=== PATIENT | female | born 1970 | race African-American/Black ===

== ENCOUNTER 2023-07-03 10:30 | Outpatient (REF) | payer OTHER, SELFPAY ==
[2023-07-03 11:58] LABS: MANUAL DIFF FLAG NO
[2023-07-03 12:21] LABS: Basophils Absolute Auto 0.1 X10*3/uL (0.0-0.2); Basophils Percent Auto 1.5 % (0-2); Eosinophils Absolute Auto 0.2 X10*3/uL (0.0-0.4); Eosinophils Percent Auto 2.3 % (0-4); Hematocrit 38.4 % (37.0-47.0); Hemoglobin 12.4 g/dl (12.0-16.0); Imm Gran Abs Auto 0.03 X10*3/uL (0.00-0.03); Imm Gran Pct Auto 0.4 % (0.0-0.4); Lymphocytes Absolute Auto 1.5 X10*3/uL (1.2-4.9); Lymphocytes Percent Auto 22.3 % (20-40); Mean Corpuscular HGB Conc 32.3 g/dl (31.0-35.0); Mean Corpuscular Hemoglobin 27.4 pg (27.0-33.0); Mean Corpuscular Volume 84.8 fL (80.0-98.0); Mean Platelet Volume 9.7 fL (9.4-12.3); Monocytes Absolute Auto 0.4 X10*3/uL (0.1-1.2); Neutrophils Absolute Auto 4.6 x10*3/uL (2.0-8.3); Neutrophils Percent Auto 67.5 % (45-73); Platelet Count 500 X10*3/uL (160-400); Red Blood Count 4.53 X10*6/uL (4.20-5.50); Red Cell Distribution Width 14.4 % (11.0-16.0); White Blood Count 6.9 X10*3/uL (4.8-10.8)
[2023-07-03 12:31] LABS: Monotest Negative (Negative)
[2023-07-03 12:53] LABS: Rheumatoid Factor < 13.0 IU/mL (<15.0)
[2023-07-03 13:22] LABS: Vitamin B12 584 pg/mL (200-900)
[2023-07-03 13:25] LABS: Alanine Aminotransferase 11 U/L (0-31); Alkaline Phosphatase 96 U/L (39-117); Anion Gap 10 (12-20); Aspartate Amino Transferase 13 U/L (5-31); Bilirubin Direct 0.1 mg/dL (0.0-0.5); Bilirubin Total 0.3 mg/dL (0.0-1.0); Blood Urea Nitrogen 14 mg/dL (9-16); C Reactive Protein 0.38 mg/dL (< or = 0.50); Calcium 8.7 mg/dL (8.4-10.2); Carbon Dioxide 25 mmol/L (22-29); Chloride 107 mmol/L (96-108); Cholesterol 243 mg/dL (<200); Estimated Glomerular Filt Rate > 60; Glucose Random 83 mg/dL (60-115); HDL Cholesterol 48 mg/dL (>40); LDL Cholesterol Calculated 171 mg/dL (<100); Magnesium 2.1 mg/dL (1.6-2.6); Potassium 4.1 mmol/L (3.3-5.1); Sodium 138 mmol/L (135-145); Total Protein 7.1 g/dL (6.5-8.0); Triglycerides 122 mg/dL (<150)
[2023-07-03 13:45] LABS: Ferritin 27 ng/mL (10-250); TSH reflex Free T4 1.22 uIU/mL (0.32-4.0); Vitamin D 25-OH Total 15.1 ng/mL (>30)
[2023-07-04 13:24] LABS: Lyme Abs Screen <0.90 index
[2023-07-04 20:34] LABS: Anti DNA DS Antibody <1 IU/mL
[2023-07-05 15:19] LABS: Anti Nuclear Antibody Screen NEGATIVE (NEGATIVE)
[2023-07-07 14:52] LABS: Parvovirus B19 IgG 3.44; Parvovirus B19 IgM <0.9
== END 2023-07-03 10:31 | disposition home or self-care (01) ==
LOC: HO.CHCLDS 10:30
PROVIDERS: Visit Provider Family Medicine
DX: R53.82 Chronic fatigue, unspecified (principal); E78.5 Hyperlipidemia, unspecified; M79.18 Myalgia, other site; G89.29 Other chronic pain; I10 Essential (primary) hypertension
CPT/HCPCS: 36415; 80048; 80061; 80076; 82306; 82607; 82728; 83735; 84443; 85025; 86038; 86140; 86225; 86308; 86431; 86617; 86618; 86747

== ENCOUNTER 2023-12-24 11:06 | Outpatient (REF) | payer OTHER, SELFPAY ==
[2023-12-24 14:50] LABS: Alanine Aminotransferase 23 U/L (0-31); Albumin Level 4.3 g/dL (3.5-5.0); Alkaline Phosphatase 109 U/L (39-117); Aspartate Amino Transferase 22 U/L (5-31); Bilirubin Direct 0.1 mg/dL (0.0-0.5); Bilirubin Total 0.4 mg/dL (0.0-1.0); Cholesterol 197 mg/dL (<200); HDL Cholesterol 51 mg/dL (>40); LDL Cholesterol Calculated 123 mg/dL (<100); Total Protein 7.5 g/dL (6.5-8.0); Triglycerides 118 mg/dL (<150)
[2023-12-24 14:53] LABS: Vitamin D 25-OH Total 19.8 ng/mL (>30)
== END 2023-12-24 11:07 | disposition home or self-care (01) ==
LOC: HO.CHCLDS 11:06
PROVIDERS: Visit Provider Family Medicine
DX: E78.5 Hyperlipidemia, unspecified (principal); E55.9 Vitamin D deficiency, unspecified
CPT/HCPCS: 36415; 80061; 80076; 82306

== ENCOUNTER 2024-08-25 12:01 | Outpatient (REF) | payer OTHER, SELFPAY ==
--- OUTSIDE RECORDS SUMMARY | 2024-08-25 14:05 | XMS_ITS | Encounter Summary ---
Author Organization [employer] [facility] Address [address] [facility] [address] [facility] [address] [place] [address] Care Team Providers Care Performance Improvement Consultant Name Role Phone Priya Brewer MD Primary Care Provider +1- [phone] Melindamelchor Cassie Unavailable Reason for Visit * Reason Onset Date Comments Nurse Triage 06/02/2023 Encounter Details Date Type Department Care Team ([facility] st Contact Info) Description 06/02/2023 Telephone [facility] MEDICINE [address] [place], [place] [phone] Priya Brewer MD [address] [place] [address] Nurse Triage Social History Tobacco Use Types Packs/Day Years Used Date Smoking Tobacco: Never Smokeless Tobacco: Never Housing Stability Answer Date Recorded What is your housing situation today? I have jimgayle nobles 03/31/[address] you li ve. Do you have problems with any of the following? None of the above 03/31/2023 Food Insecurity Answer Date Recorded Within the past 12 months, y ou worried that your food would run out before you got money to buy more: Never True 03/31/2023 Within the past 12 months,th e food you bought just didn't last and you didn't have enough money to get more: Never True Transportation Answer Date Recorded In the past 12 months, has l ack of transportation kept you from medical appts, meetings, work or from getting things needed for daily living? No 03/31/2023 Utilities Answer Date Recorded In the past 12 months, has t he electric, gas, oil or water company threatened to shut off services in your home? No 03/31/2023 Comments Unknown Sex and Gender Information Value Date Recorded Sex Assigned at Female 04/15/2022 10:38 AM EDT Legal Sex Female 10:38 AM EDT Gender Identity Female 04/15/2022 10:38 AM EDT Sexual Orientation Straight 04/15/2022 10 :38 AM EDT documented as of this encounter Miscellaneous Notes * Telephone Encounter - Antoine Boucher - 06/02/2023 2:38 PM EST Symptoms: Nausea But No Vomiting, Dizziness Outcome: Schedule an urgent appointment (within 4 hours) or talk to a nurse or provider soon Reason: Getting worse The caller accepted this outcome documented in this encounter Plan of Treatment Not on file documented as of this encounter Visit Diagnoses Not on filedocumented in this encounter Care Teams Performance Improvement Consultant Relationship Specialty Start Date End Date Priya Brewer MD [address] [place] [address] PCP - General Family Medicine 12/25/20 Cassie Yen [address] [place] [address] [address] [place] [id number] Gynecology 07/13/24 Dr. [facility] 07/13/24 documented as of this encounter
--- OUTSIDE RECORDS SUMMARY | 2024-08-25 14:05 | XMS_ITS | Encounter Summary ---
Author Organization [employer] [facility] Address [address] [facility] [address] [place] [address] Care Team Providers Care Cisco Network Engineer Name Role Phone Priya Brewer MD Primary Care Provider +1- [phone] Cassie Yen Unavailable Encounter Details Date Type Department Care Team (Late st Contact Info) Description 12/26/2022 Orders Only [facility] MEDICINE [address] [place], [place] [phone] Priya Brewer MD [address] [place] [address] Social History Tobacco Use Types Packs/Day Years Used Date Smoking Tobacco: Never Smokeless Tobacco: Never Comments Unknown Sex and Gender Information Value Date Recorded Sex Assigned at Female 04/15/2022 10:38 AM EDT Legal Sex Female 10:38 AM EDT Gender Identity Female 04/15/2022 10:38 AM EDT Sexual Orientation Straight 04/15/2022 10 :38 AM EDT documented as of this encounter Plan of Treatment Not on file documented as of this encounter Visit Diagnoses Not on filedocumented in this encounter Care Teams Cisco Network Engineer Relationship Specialty Start Date End Date Priya Brewer MD [address] [place], [place] [phone] PCP - General Family Medicine 12/25/20 Cassie Yen [address] [place] [address] [address] [place] [address] Gynecology 07/13/24 Dr. [facility] 07/13/24 documented as of this encounter
--- OUTSIDE RECORDS SUMMARY | 2024-08-25 14:05 | XMS_ITS | Encounter Summary ---
Author Organization [employer] Address [address] [facility] 7t [place] [address] Care Team Providers Care Remediation Technician Name Role Phone Priya Brewer MD Primary Care Provider +1- [phone] Cassie Yen Encounter Details Date Type Department Care Team (Latest Contact Info) Description 08/25/2024 Travel Social History Tobacco Use Types Packs/Day Years Used Date Smoking Tobacco: Never Smokeless Tobacco: Never Alcohol Use Standard Drinks/Week Comments Never 0 (1 standard drink = 0.6 oz pur e alcohol) Depression Answer Date Recorded Patient Health Questionnaire-9 Score 5 08/25/2024 Patient Health Questionnaire-9 Score 5 08/25/2024 Last PHQ-9: Questionnaire Data Not on file 0 08/25/2024 Housing Stability Answer Date Recorded What is your housing situation today? I am not s ure 08/25/[address] you li ve. Do you have problems with any of the following? None of the above 08/25/2024 Food Insecurity Answer Date Recorded Within the past 12 months, y ou worried that your food would run out before you got money to buy more: Never True 08/25/2024 Within the past 12 months,th e food you bought just didn't last and you didn't have enough money to get more: Never True 05/2025 Transportation Answer Date Recorded In the past 12 months, has l ack of transportation kept you from medical appts, meetings, work or from getting things needed for daily living? No 08/25/2024 Utilities Answer Date Recorded In the past 12 months, has t he electric, gas, oil or water company threatened to shut off services in your home? No 08/25/2024 Depression Answer Date Recorded Patient Health Questionnaire-2 Score 2 08/25/2024 Internet Access Answer Date Recorded Internet Access Q1 No 08/25/2024 Internet Access Q2 I do not want or need it 08/14 Comments Unknown Sex and Gender Information Value Date Recorded Sex Assigned at Female 04/15/2022 10:38 AM EDT Legal Sex Female 10:38 AM EDT Gender Identity Female 04/15/2022 10:38 AM EDT Sexual Orientation Straight 04/15/2022 10 :38 AM EDT documented as of this encounter Plan of Treatment Not on file documented as of this encounter Visit Diagnoses Not on filedocumented in this encounter Additional Health Concerns Assessment Noted Time PHQ-9 Depression Total Score: 5 08/26/19 25 12:03 PM EDT documented as of this encounter Care Teams Remediation Technician Relationship Specialty Start Date End Date Priya Brewer MD [address] [place] [address] PCP - General Family Medicine 12/25/20 Cassie Yen [address] [place] [address] Drive [address] [place] [address] Gynecology 07/13/24 Dr. [facility] 07/13/24 documented as of this encounter
--- OUTSIDE RECORDS SUMMARY | 2024-08-25 14:05 | XMS_ITS | Encounter Summary ---
Author Organization [employer] [facility] Address [address] [facility] 7t [place] [address] Care Team Providers Care Engine House Helper Name Role Phone Priya Brewer MD Primary Care Provider +1- [phone] Cassie Yen Unavailable Encounter Details Date Type Department Care Team (Late st Contact Info) Description 03/04/2023 Orders Only [facility] MEDICINE [address] [place] [address] Provider, MD Jose J Social History Tobacco Use Types Packs/Day Years [...] on file documented as of this encounter Procedures Procedure Name Priority Date/Time Associated Diagnosis Comments HM PAP/HPV Routine 06/25/2019 documented in this encounter Results * Hm Pap Smear (06/25/2019) Historical Provider HEALTH MAINTENANCE Final Result documented in this encounter Visit Diagnoses Not on filedocumented in this encounter Care Teams Engine House Helper Relationship Specialty Start Date End Date Priya Brewer MD [address] [place] [address] PCP - General Family Medicine 12/25/20 Cassie Yen [address] [place] [address] Drive [address] [place] [address] Gynecology 07/13/24 Dr. [facility] 07/13/24 documented as of this encounter
--- OUTSIDE RECORDS SUMMARY | 2024-08-25 14:05 | XMS_ITS | Encounter Summary ---
Author Organization [employer] Address [address] [facility] 7[address] [place] [address] Care Team Providers Care Manager Fire Name Role Phone Priya Brewer MD Primary Care Provider +1- [phone] Cassie Yen Unavailable Encounter Details Date Type Department Care Team (Late st Contact Info) Description 07/13/2024 Orders Only [facility] MEDICINE [address] [place], [place] [phone] Priya Brewer MD [address] [place], [place] [phone] Preventative health care (Primary Dx) Social History Tobacco Use Types Packs/Day Years Used Date Smoking Tobacco: Never Smokeless Tobacco: Never Alcohol Use Standard Drinks/Week Comments Never 0 (1 standard drink = 0.6 oz pur e alcohol) Depression Answer Date Recorded Patient Health Questionnaire-9 Score 0 07/02/2023 Patient Health Questionnaire-9 Score 0 07/02/2023 Last PHQ-9: Questionnaire Data Not on file 0 07/02/2023 Housing Stability Answer Date Recorded What is your housing situation today? I have jim nobles 03/31/[address] you [...] from getting things needed for daily living? Yes, it has kept me from medical appointments or getting medications. 07/02/2023 Utilities Answer Date Recorded In the past 12 months, has t he electric, gas, oil or water company threatened to shut off services in your home? No 03/31/2023 Depression Answer Date Recorded Patient Health Questionnaire-2 Score 0 07/02/2023 Comments Unknown Sex and Gender Information Value Date Recorded Sex Assigned at Female 04/15/2022 10:38 AM EDT Legal Sex Female 10:38 AM EDT Gender Identity Female 04/15/2022 10:38 AM EDT Sexual Orientation Straight 04/15/2022 10 :38 AM EDT documented as of this encounter Plan of Treatment Not on file documented as of this encounter Visit Diagnoses Diagnosis Preventative health care- Primary Routine general medical examination at a health care facility documented in this encounter Additional Health Concerns Assessment Noted Time PHQ-9 Depression Total Score: 0 07/02/19 24 3:35 PM EST documented as of this encounter Care Teams Manager Fire Relationship Specialty Start Date End Date Priya Brewer MD [address] [place] [address] PCP - General Family Medicine 12/25/20 Cassie Yen [address] [place] [address] Drive [address] [place] [address] Gynecology 07/13/24 Dr. [facility] 07/13/24 documented as of this encounter
--- OUTSIDE RECORDS SUMMARY | 2024-08-25 14:05 | XMS_ITS | Encounter Summary ---
Author Organization [employer] [facility] Address [address] [facility] [address] [address] Care Team Providers Care Aircraft Electrician Name Role Phone Priya Brewer MD Primary Care Provider +1- [phone] Cassie Yen Unavailable Encounter Details Date Type Department Care Team (Late st Contact Info) Description 06/30/2022 Abstract [facility] MEDICINE [address] [place], [place] [phone] Priya Brewer MD [address] [place] [address] Social History Tobacco Use Types Packs/Day Years Used Date Smoking Tobacco: Never Assessed Comments Unknown Sex and Gender Information Value [...] on filedocumented in this encounter Care Teams Aircraft Electrician Relationship Specialty Start Date End Date Priya Brewer MD [address] [place], [place] [phone] PCP - General Family Medicine 12/25/20 Cassie Yen [address] [place] [address] Drive [address] [place] [address] Gynecology 07/13/24 Dr. [facility] 07/13/24 documented as of this encounter
--- OUTSIDE RECORDS SUMMARY | 2024-08-25 14:05 | XMS_ITS | Clinical Summary ---
Author Organization [employer] Address [address] [facility] 7 [place] [address] Care Team Providers Care Emergency Doctor Name Role Phone Priya Brewer MD Primary Care Provider [phone]- [phone] Cassie Yen Allergies Active Allergy Reactions Criticality Noted Date Comments Apple Juice 03/09/2021 Prunus Persica 03/09/2021 Medications * This document contains information received from the source organization and may not represent a complete record from that organization. atorvastatin (Lipitor) 20 MG tabletIndicatio ns:Dyslipidemia Take 1 tablet (20 mg) by mouth in the morning. 30 tablet 11 09/03/19 24 025 Active triazolam (Halcion) 0.25 MG tabletIndicatio ns:Irritable bowel syndrome, unspecified type TAKE 1 TABLET 1 HOUR BEFORE DENTAL APPT, BRING THE OTHER TABLET WITH YOU 09/29/19 24 Active dicyclomine (Bentyl) 10 MG capsuleIndicati ons:Irritable bowel syndrome, unspecified type TAKE 1 CAPSULE BY MOUTH 4 TIMES DAILY. 120 capsule 11 12/24/19 24 Active omega-3 (Fish Oil) 1000 MG capsuleIndicati ons:Dyslipidemi a TAKE 1 CAPSULE BY MOUTH TWICE A DAY 120 capsule 11 12/24/19 24 Active cetirizine (ZyrTEC) 10 MG tabletIndicatio ns:Seasonal allergies TAKE 1 TABLET BY MOUTH EVERY DAY 90 tablet 1 04/27/20 24 Active fluticasone (Flonase) 50 MCG/ACT nasal sprayIndication s:Seasonal allergies USE 1-2 SPRAYS INTO EACH NOSTRIL DAILY 48 mL 04/27/20 24 Active sertraline (Zoloft) 50 MG tabletIndicatio ns:Recurrent moderate major depressive disorder with anxiety (CMS/HCC) TAKE 1 TABLET BY MOUTH EVERY DAY 90 tablet 3 05/31/20 24 Active sertraline (Zoloft) 25 MG tabletIndicatio ns:Recurrent moderate major depressive disorder with anxiety (CMS/HCC) TAKE 1 TAB BY MOUTH DAILY WITH 50MG TAB FOR TOTAL OF 75MG DAILY. 90 tablet 2 08/21/19 25 Active cholecalciferol (Vitamin D-3) 25 MCG (1000 UT) capsuleIndicati ons:Vitamin D deficiency 1 tab po daily 90 capsule 11 08/26/19 25 Active diphenhydrAMINE (BENADryl) 25 MG tablet Take 1 tablet (25 mg) by mouth if needed at bedtime for itching. 30 tablet 08/26/19 25 025 Active Fluocinolone Acetonide Scalp ([place]-Smoothe/ FS Scalp) 0.01 % oil Apply at night was in am 118.28 mL 3 08/26/19 25 Active ketoconazole (NIZOral) 2 % shampoo Apply topically 2 (two) times a week. 120 mL 3 08/27/19 25 Active albuterol 108 (90 Base) MCG/ACT inhalerIndicati ons:Exercise-in duced asthma Inhale 2 puffs every 6 (six) hours if needed for wheezing. 18 g 11 08/26/19 25 026 Active amLODIPine (Norvasc) 5 MG tabletIndicatio ns:Essential hypertension Take 1 tablet (5 mg) by mouth Once per day. 90 tablet 3 08/26/19 25 026 Active cholecalciferol (Vitamin D-3) 25 MCG (1000 UT) capsuleIndicati ons:Vitamin D deficiency 1 tab po daily 90 capsule 11 08/16/19 23 025 Discontinued(Re order (will not trigger notification to Pharmacy)) sertraline (Zoloft) 25 MG tabletIndicatio ns:Recurrent moderate major depressive disorder with anxiety (CMS/HCC) TAKE 1 TAB BY MOUTH DAILY WITH 50MG TAB FOR TOTAL OF 75MG DAILY. 90 tablet 2 09/22/19 24 025 Discontinued diazePAM (Valium) 5 MG tablet TAKE 1 TABLET THE EVENING BEFORE BED, THEN TAKE THE OTHER WITH YOU TO APPT 09/29/19 025 Discontinued(Me d list cleanup (will not trigger notification to Pharmacy)) albuterol 108 (90 Base) MCG/ACT inhalerIndicati ons:Exercise-in duced asthma Inhale 2 puffs every 6 (six) hours if needed for wheezing. 18 g 11 11/12/19 025 Discontinued(Re order (will not trigger notification to Pharmacy)) Fluocinolone Acetonide Scalp ([place]-Smoothe/ FS Scalp) 0.01 % oil Apply at night was in am 118.28 mL 3 01/16/20 025 Discontinued(Re order (will not trigger notification to Pharmacy)) ketoconazole (NIZOral) 2 % shampoo Apply topically 2 (two) times a week. 120 mL 3 01/19/20 025 Discontinued(Re order (will not trigger notification to Pharmacy)) amLODIPine (Norvasc) 2.5 MG tabletIndicatio ns:Essential hypertension TAKE 1 TABLET BY MOUTH EVERY DAY 90 tablet 3 04/30/20 025 Discontinued Active Problems Problem Noted Date Diagnosed Date Cardiac risk counseling 10/08/2023 Overview (10/13/2023): Calculated 10/08/23: Low Risk The 10-year ASCVD risk score (Bogdan ROSENTHAL, et al., 2019) is: 1.5% Values used to calculate the score: Age: 53 years Sex: Female Is Non- : Yes Diabetic: No Tobacco smoker: No Systolic Blood Pressure: 100 mmHg Is BP treated: No HDL Cholesterol: 48 mg/dL Total Cholesterol: 243 mg/dL Lab Results Component Value Date LDLCHOL 187 (H) 03/08/2022 LDLCHOL 185 (H) 01/18/2022 -Tobacco cessation: not applicable -Statin therapy: atorvastatin 20 mg started 09/03/23 -Importance of moderate physical activity and nutrition interventions discussed. Autonomic nervous system disease or syndrome Overview (09/03/2023): We discussed multiple somatic symptoms including chornic fatigue, pain, IBS, depression, and dizziness. We discussed autonomic dysfunction, how it affects all organ systems and that it is a diagnosis of exclusion. Discussed we do not know the cause but it is strongly associated with history of trauma. We discussed symptoms can be exacerbated by other diagnosis such as perimenopause, vitamin deficiencies, thryoid dysfunction, infection, etc. -panel of labs to exclude infectious, dietary, rheumatologic -discussed techniques of regulating autonomic nervous system such as breathing, tapping, acupuncture, ice -supplements including Magnesium threonate, omega 3 added to vit D -telephone call in 2 month to follow up sympoms Assessment & Plan (09/03/2023 1:24 PM EDT): We discussed multiple somatic symptoms including chornic fatigue, pain, IBS, depression, and dizziness. We discussed autonomic dysfunction, how it affects all organ systems and that it is a diagnosis of exclusion. Discussed we do not know the cause but it is strongly associated with history of trauma. We discussed symptoms can be exacerbated by other diagnosis such as perimenopause, vitamin deficiencies, thryoid dysfunction, infection, etc. -panel of labs to exclude infectious, dietary, rheumatologic -discussed techniques of regulating autonomic nervous system such as breathing, tapping, acupuncture, ice -supplements including Magnesium threonate, omega 3 added to vit D -telephone call in 2 month to follow up sympoms Assessment & Plan (07/03/2023 9:41 AM EST): We discussed multiple somatic symptoms including chornic fatigue, pain, IBS, depression, and dizziness. We discussed autonomic dysfunction, how it affects all organ systems and that it is a diagnosis of exclusion. Discussed we do not know the cause but it is strongly associated with history of trauma. We discussed symptoms can be exacerbated by other diagnosis such as perimenopause, vitamin deficiencies, thryoid dysfunction, infection, etc. -panel of labs to exclude infectious, dietary, rheumatologic -discussed techniques of regulating autonomic nervous system such as breathing, tapping, acupuncture, ice -telephone call in 1 month to follow up sympoms Chronic fatigue 07/03/2023 Refusal of blood transfusion s as patient is Jainism 07/03/2023 Other specified health status 01/01/2023 Overview (08/25/2024): -next physical exam due after 08/25/25 -eye care facilitated [facility] -dental home is [facility] -health care proxy on file, pt carries with her Assessment & Plan (07/02/2023 3:58 PM EST): -next physical exam due after 07/02/2024 -eye care facilitated by -dental home is Seasonal allergies 10/18/2022 Overview (10/18/2022): Severe despite multiple medications. -Referral to patient observation assistant done 10/18/2022. Assessment & Plan (07/02/2023 2:12 PM EST): Severe despite multiple medications. -Referral to patient observation assistant done 10/18/2022. Assessment & Plan (10/18/2022 11:43 AM EDT): Severe despite multiple medications. -Referral to patient observation assistant done 10/18/2022. Vitamin D deficiency 10/17/2022 Elevated hemoglobin A1c 07/25/2022 Overview (09/03/2023): Lab Results Component Value Date HGBA1C 5.8 (H) 03/08/2022 HGBA1C 5.9 (H) 01/18/2022 GLUCOSE 83 07/03/2023 Assessment & Plan (07/02/2023 2:11 PM EST): Lab Results Component Value Date HGBA1C 5.8 (H) 03/08/2022 HGBA1C 5.9 (H) 01/18/2022 Essential hypertension 07/25/2022 Overview (08/25/2024): -Blood pressure is at not goal -Continue lifestyle modifications -Continue current medications -increase amlodipine to 5mg daily 08/25/24 Assessment & Plan (07/02/2023 2:11 PM EST): -Blood pressure is at goal -Continue lifestyle modifications -Continue current medications Pollen-food allergy 07/25/2022 Generalized abdominal pain 07/25/2022 Assessment & Plan (07/25/2022 1:38 PM EST): Likely flare of IBS. No red flags for diverticulitis or obstruction. Will trial Rifaximin 550mg QHS for 14 days. We will reevaluate friday. No work for 1 weeks. Consider Bentyl in the future. F/u PRN. Dyslipidemia 08/30/2021 Overview (08/25/2024): Lab Results Component Value Date CHOLESTEROL 269 (H) 03/08/2022 HDLCHOL 57 03/08/2022 TRIG 118 12/24/2023 LDLCHOL 187 (H) 03/08/2022 CHOLHDLRAT 4.7 03/08/2022 NONHDLCHOL 212 (H) 03/08/2022 Lab Results Component Value Date TRIG 118 12/24/2023 TRIG 122 07/03/2023 CHOL 197 12/24/2023 CHOL 243 (H) 07/03/2023 LDLCHOLCAL 123 (H) 12/24/2023 LDLCHOLCAL 171 (H) 07/03/2023 HDL 51 12/24/2023 HDL 48 07/03/2023 -continue lifestyle modifications -atorvastatin 20 mg started 09/03/23 -recheck labs 2 months Assessment & Plan (09/03/2023 2:13 PM EDT): Lab Results Component Value Date CHOLESTEROL 269 (H) 03/08/2022 HDLCHOL 57 03/08/2022 TRIG 122 07/03/2023 LDLCHOL 187 (H) 03/08/2022 CHOLHDLRAT 4.7 03/08/2022 NONHDLCHOL 212 (H) 03/08/2022 Lab Results Component Value Date TRIG 122 07/03/2023 CHOL 243 (H) 07/03/2023 LDLCHOLCAL 171 (H) 07/03/2023 HDL 48 07/03/2023 -continue lifestyle modifications -atorvastatin 20 mg started 09/03/23 -recheck labs 2 months Assessment & Plan (07/02/2023 2:11 PM EST): Lab Results Component Value Date CHOLESTEROL 269 (H) 03/08/2022 HDLCHOL 57 03/08/2022 LDLCHOL 187 (H) 03/08/2022 CHOLHDLRAT 4.7 03/08/2022 NONHDLCHOL 212 (H) 03/08/2022 -continue lifestyle modifications Irritable bowel syndrome 08/30/2021 Overview (10/18/2022): Well controlled. -on FOBMAP diet and relaxation techniques -GI 09/04/[address]Elizabeth Castro, pain improved with fiber and miralax. -CT scan 04/2021 showed mild irritation. -Colonoscopy done 08/[address] Westfall normal -CT 07/2022 abdomen unremarkable -some improvement with Rifaximin 07/2022 -Occasional bentyl 07/2022 Assessment & Plan (07/02/2023 2:11 PM EST): Well controlled. -on FOBMAP diet and relaxation techniques -GI 09/04/[address]Elizabeth Castro, pain improved with fiber and miralax. -CT scan 04/2021 showed mild irritation. -Colonoscopy done 08/[address] Westfall normal -CT 07/2022 abdomen unremarkable -some improvement with Rifaximin 07/2022 -Occasional bentyl 07/2022 Assessment & Plan (10/18/2022 11:40 AM EDT): Well controlled. -on FOBMAP diet and relaxation techniques -GI 09/04/[address]Elizabeth Castro, pain improved with fiber and miralax. -CT scan 04/2021 showed mild irritation. -Colonoscopy done 08/[address] Westfall normal -CT 07/2022 abdomen unremarkable -some improvement with Rifaximin 07/2022 -Occasional bentyl Assessment & Plan (08/15/2022 9:32 AM EST): -on FOBMAP diet and relaxation techniques -GI 09/04/[address]Elizabeth Castro, pain improved with fiber and miralax. -CT scan 04/2021 showed mild irritation. -Colonoscopy done 08/[address] Westfall normal -CT 07/2022 abdomen unremarkable -some improvement with Rifaximin 07/2022 -trial of bentyl 07/2022 Assessment & Plan (07/29/2022 12:03 PM EST): Improved but not controlled, still having daily pain. Will check labs and CT scan. Rifaximin trail. Continue fodmap diet. Continue spiritual meditaion. Will call in 1 week. Recurrent moderate major depressive disorder wit h anxiety 08/30/2021 Overview (01/15/2023): Zoloft increaed to 75mg daily on 12/26/2022. Assessment & Plan (07/02/2023 2:11 PM EST): Zoloft increaed to 75mg daily on 12/26/2022. Assessment & Plan (10/18/2022 11:41 AM EDT): Well controlled on sertraline 50mg. Resolved Problems Problem Noted Date Diagnosed Date Resolved Date Physical exam 07/02/2023 10/13/2023 Overview (07/02/2023): -Normal growth and development. -Anticipatory guidance discussed. -Preventative care / harm reduction discussed. Assessment & Plan (07/02/2023 3:58 PM EST): -Normal growth and development. -Anticipatory guidance discussed. -Preventative care / harm reduction discussed. Encounters Date Type Department Care Team Description 08/25/2024 10:30 AM EDT Office Visit [facility] [address] [place] [phone] Priya Brewer MD 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); Essential hypertension; Dyslipidemia; Vitamin D deficiency; Elevated hemoglobin A1c; Other specified health status; Pollen-food allergy, sequela; Oral allergy syndrome, sequela; Exercise-induced asthma; Encounter for hepatitis C screening test for low risk patient; Screening for HIV without presence of risk factors; Dietary counseling; Exercise counseling 08/25/2024 Telephone [facility] [address] [place] [phone] Priya Brewer MD 08/25/2024 Travel 08/24/2024 Telephone [facility] [address] [place] [phone] Priya Brewer MD chartprep 08/19/2024 Refill [facility] [address] [place] [phone] Priya Brewer MD Recurrent moderate major depressive disorder with anxiety (CMS/HCC) 08/13/2024 Patient Outreach [facility] [address] [place] [address] [phone] Priya Brewer MD Pre-visit Planning (Pre-visit planning - LVM ) 07/13/2024 Orders Only [facility] [address] [place] [address] [phone] rPiya Brewer MD Preventative health care (Primary Dx) 07/02/2024 Orders Only [facility] [address] [place], [place] [phone] Russ Hernandez MD 05/29/2024 Refill [facility] [address] [place] [address] [phone] Priya Brewer MD Recurrent moderate major depressive disorder with anxiety ([facility]/HCC) from Last 3 Months Immunizations Name Administration Dates Next Due Hep B, adult 12/31/2023,07/30/2023,07/02/2023 Influenza injectable quadriv alent preservative free 07/02/2023,03/08/2022,03/09/2021 Moderna Covid-19 Vaccine 12+ 02/04/2022, 05/15/2021,10/31/2020,2020 Pfizer Covid-19 Vaccine 12+ 07/02/2023 Pneumococcal Conjugate PCV 20 08/25/2024 Tdap 03/09/2021 Zoster, Recombinant 03/08/2022 Family History Medical History Relation Name Comments Diabetes Father Diabetes Father's Sister Relation Name Status Comments Father Father's Sister Social History Tobacco Use Types Packs/Day Years Used Date Smoking Tobacco: Never Smokeless Tobacco: Never Tobacco Cessation:Counseling Given: Not Answered Alcohol Use Standard Drinks/Week Comments Never 0 [...] Orientation Straight 04/15/2022 10 :38 AM EDT Last Filed Vital Signs Vital Sign Reading Time Taken Comments Blood Pressure 147/102 08/25/2024 10:53 AM EDT Pulse 97 08/25/2024 10:53 AM EDT Temperature 35.9 ??C (96.6 ??F) 08/25/2024 10:53 AM E DT Respiratory Rate 20 08/25/2024 10:53 AM EDT Oxygen Saturation 100% 08/25/2024 10:53 AM EDT Inhaled Oxygen Concentration - - Weight 70.5 kg (155 lb 6.4 oz) 08/25/2024 10:53 AM EDT Height 165.1 cm (5' 5 ) 08/25/2024 10:53 AM EDT Body Mass Index 25.86 08/25/2024 10:53 AM EDT Plan of Treatment Health Maintenance Due Date Last Done Comments CT Colonography 1970 FIT DNA/Cologuard 1970 FIT 1970 FOBT 1970 HIV Screening 1970 Sigmoidoscopy 1970 Hepatitis C Screening 1988 Zoster Vaccines (2 of 2) 05/03/2022 03/08/2022 Dental Oral Exam 01/30/2024 07/31/2023, 07/31/2023 Dental Prophylaxis 01/30/2024 07/31/2023, 07/31/2023 Cervical Cancer Screening 06/25/2024 HPV/Cotest 06/25/2024 06/25/2019 Pap Smear 06/25/2024 06/25/2019, 06/16, 12/11/2016 Dental X-Ray: Bitewings 08/01/2024 07/31/2023, 07/31 Influenza Vaccine (#1) 2024 , 03/08/2022, 03/09/2021 Postponed from 02/15/2024 (Patient Refused) Mammogram 05/02/2025 05/02/2023, 03/28/2021 Alcohol/Substance Use Screening 08/25/2025 08/25/2024 COVID-19 Vaccine ( season) 2025 07/02/2023, 02/04/2022, 05/15/2021, Additional history exists Postponed from 02/15/2024 (Patient Refused) Depression Screening 08/25/2025 08/25/2024, 08/26/19 25 SDOH Screening 08/25/2025 08/25/2024 Tobacco Screening 08/25/2025 08/25/2024 Dental X-Ray: Full Mouth 08/01/2026 07/31/2023, 07/17 Colonoscopy 08/30/2026 08/30/2016 Colorectal Cancer Screening 08/30/2026 Lipid Panel 12/23/2028 12/24/2023, 06/16, 03/08/2022, Additional history exists DTaP/Tdap/Td Vaccines (2 - Td or Tdap) 03/09/2031 03/09/2021 RSV Patients and Patients Aged 60 years or older (1 - 1-dose 75+ series) 2045 Hepatitis B Vaccines Completed 12/31/2023, 07/30/2023, 07/02/2023 Pneumococcal Vaccine: 50+ Years Completed 08/25/2024 HIB Vaccines Aged Out No longer eligi ble based on patient's age to complete this topic HPV Vaccines Aged Out No longer eligi ble based on patient's age to complete this topic Hepatitis A Vaccines Aged Out No long er eligible based on patient's age to complete this topic IPV Vaccines Aged Out No longer eligi ble based on patient's age to complete this topic Meningococcal Vaccine Aged Out No harpreet anderson eligible based on patient's age to complete this topic RSV under 20 months Aged Out No longe r eligible based on patient's age to complete this topic Rotavirus Vaccines Aged Out No longer eligible based on patient's age to complete this topic Procedures Procedure Name Priority Date/Time Associated Diagnosis Comments LIPID PANEL, STANDARD Routine 12/24/2023 11:07 AM EDT Dyslipidemia PROPHYLAXIS - ADULT Routine 07/31/2023 1 :00 PM EST INTRAORAL - COMPLETE SERIES OF RADIOGRAPHIC IMAGES Routine 07/31/2023 1:00 PM EST PERIODIC ORAL EVALUATION - ESTABLISHED PATIENT Routine 07/31/2023 1:00 PM EST HM MAMMOGRAPHY Routine 05/02/2023 HM HPV ONLY Routine 06/25/2019 PAP/HPV Routine 06/25/2019 COLONOSCOPY Routine 08/30/2016 from Last 3 Months or Most Recently Relevant to Health Maintenance Results * (ABNORMAL) Lipid Panel, Standard (12/24/2023 11:07 AM EDT) Triglycerides 118 <150 mg/dL [facility] Comment:Desirable Triglyceri de: less than 150 mg/dLBorderline High Triglyceride 150-199 mg/dLHigh Triglyceride: 200-499 mg/dLVery High Triglyceride: greater than or equal to 5OO mg/dL Cholesterol 197 <200 mg/dL [facility] Comment:Desirable Cholestero l: less than 200 mg/dLBorderline High Cholesterol: 200-239 mg/dLHigh Cholesterol: greater than 239 mg/dL LDL Cholesterol Calculated 123(H) <100 mg/dL [facility] Comment:Desirable LDL: less than 100 mg/dLNear Optimal/Above Optimal LDL: 110- 129 mg/dLBorderline High LDL: 130-159 mg/dLHigh LDL: 160-189 mg/dLVery High LDL: greater than or equal to 190 mg/dL HDL Cholesterol 51 >40 mg/dL [facility] Comment:Desirable HDL: great er than 40 mg/dL Note: This HDL assay may give artificially low results in patients with liver disease. Blood Venous blood specimen / Unknown 12/24/2023 11:07 AM EDT 12/24/2023 1:59 PM EDT Priya Brewer MD LAB BLOOD ORDERABLES Final Result [facility] [address] [place] [address] [phone] * Mammography (05/02/2023) Mammogram normal Anatomical Region Laterality Modality Other Historical Provider HEALTH MAINTENANCE Final Result * HPV (06/25/2019) HPV Undetected 06/25/2019 Historical Provider HEALTH MAINTENANCE Final Result * Pap Smear (06/25/2019) Pap smear NILM HPV- Historical Provider HEALTH MAINTENANCE Final Result * Colonoscopy (08/30/2016) Colonoscopy Normal Historical Sukhwinder STEWARD HEALTH MAINTENANCE Final Result from Last 3 Months or Most Recently Relevant to Health Maintenance Insurance [facility] [address] [place] [address] DENTAL - [facility] Care Teams Emergency Doctor Relationship Specialty Start Date End Date Osman, MD Priya [address] [place] [address] PCP - General Family Medicine 12/25/20 Cassie Yen [address] [place] [address] [address] [place] [address] Gynecology 07/13/24 Dr. Westfall Gastroenterology 07/13/24
--- OUTSIDE RECORDS SUMMARY | 2024-08-25 14:05 | XMS_ITS | Encounter Summary ---
Author Organization [employer] [facility] Address [address] [facility] [address] [place] [address] Care Team Providers Care Drapery Worker Name Role Phone Priya Brewer MD Primary Care Provider [phone]- [phone] Cassie Yen Unavailable Encounter Details Date Type Department Care Team (Late st Contact Info) Description 01/14/2023 Abstract [facility] [address] [place] [address] Priya Brewer MD [address] [place] [address] Dyslipidemia; Elevated hemoglobin A1c; Essential hypertension Social History Tobacco Use Types Packs/Day Years [...] as of this encounter Visit Diagnoses Diagnosis Dyslipidemia Other and unspecified hyperlipidemia Elevated hemoglobin A1c Other abnormal blood chemistry Essential hypertension Unspecified essential hypertension documented in this encounter Care Teams Drapery Worker Relationship Specialty Start Date End Date Priya Brewer MD [address] [place] [address] PCP - General Family Medicine 12/25/20 Cassie Yen [address] [place] [address] [address] [place] [phone] Gynecology 07/13/24 Dr. Westfall Gastroenterology 07/13/24 documented as of this encounter
--- OUTSIDE RECORDS SUMMARY | 2024-08-25 14:05 | XMS_ITS | Encounter Summary ---
Author Organization [employer] [facility] Address [address] [facility] [address], [place] [address] Care Team Providers Care Metal Painter Name Role Phone Priya Brewer MD Primary Care Provider +1- [phone] MelindaCassie roche Unavailable Reason for Referral * Consultation (Routine) - Pending Review Specialty Diagnoses / Procedures Referred By Salas rodríguez Referred To Contact Allergy Diagnoses Oral allergy syndrome, sequela Priya Brewer MD [address] [place] [address] Phone: tel: fax: Referral ID Status Reason Start Date Expiration Date Visits Requested Visits Authorized [id number] Pending Review Specialty Services Required 08/25/2024 08/25/2025 1 1 Reason for Visit * Reason Comments Annual Exam Encounter Details Date Type Department Care Team (Late st Contact Info) Description 08/25/2024 10:30 AM EDT Office Visit [facility] MEDICINE [address] [place], [place] [phone] Priya Brewer MD [address] [place], [place] [phone] 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); Essential hypertension; Dyslipidemia; Vitamin D deficiency; Elevated hemoglobin A1c; Other specified health status; Pollen-food allergy, sequela; Oral allergy syndrome, sequela; Exercise-induced asthma; Encounter for hepatitis C screening test for low risk patient; Screening for HIV without presence of risk factors; Dietary counseling; Exercise counseling Social History Tobacco Use Types Packs/Day Years [...] AM EDT documented as of this encounter Last Filed Vital Signs Vital Sign Reading [...] Mass Index 25.86 08/25/2024 10:53 AM EDT documented in this encounter Plan of Treatment Scheduled Orders Name Type Priority Associated Diagnoses Orde r Schedule Lipid Panel, Standard Lab Routine Dyslipidemia Expected: 08/25/2024 (Approximate), Expires: 08/25/2025 Hepatic Function Panel Lab Routine Dyslipidemia Expected: 08/25/2024 (Approximate), Expires: 08/25/2025 Vitamin D, 25-Hydroxy, Total, Immunoassay Lab Routine Vitamin D deficiency Expected: 08/25/2024 (Approximate), Expires: 08/25/2025 HIV-1/2 Antigen and Antibodies, Fourth Generation, with Reflexes Lab Routine Screening for HIV without presence of risk factors Expected: 08/25/2024 (Approximate), Expires: 08/25/2025 Hepatitis C Antibody with Reflex to HCV, RNA, Quantitative, Real-Time PCR Lab Routine Encounter for hepatitis C screening test for low risk patient Expected: 08/25/2024 (Approximate), Expires: 08/25/2025 Scheduled Referrals Name Type Priority Associated Diagnoses Orde r Schedule Referral to Allergy Outpatient Referral Routine Oral allergy syndrome, sequela Expected: 08/25/2024 (Approximate), Expires: 08/25/2025 documented as of this encounter Visit Diagnoses Diagnosis Autonomic nervous system disease or syndrome- Primary Unspecified disorder of autonomic nervous system Essential hypertension Unspecified essential hypertension Dyslipidemia Other and unspecified hyperlipidemia Vitamin D deficiency Elevated hemoglobin A1c Other abnormal blood chemistry Other specified health status Pollen-food allergy, sequela Exercise-induced asthma Exercise induced bronchospasm Encounter for hepatitis C screening test for low risk patient Screening for HIV without presence of risk factors Dietary counseling Dietary surveillance and counseling Exercise counseling documented in this encounter Additional Health Concerns Assessment Noted Time PHQ-9 Depression Total Score: 5 08/26/19 25 12:03 PM EDT documented as of this encounter Care Teams Metal Painter Relationship Specialty Start Date End Date Priya Brewer MD [address] [place] [id number] PCP - General Family Medicine 12/25/20 Cassie Yen [address] [place] [address] [place] [phone] Gynecology 07/13/24 Dr. Westfall [facility] 07/13/24 documented as of this encounter
--- OUTSIDE RECORDS SUMMARY | 2024-08-25 14:05 | XMS_ITS | Clinical Summary ---
Author Organization [facility] it Address [address] [place] [address] Care Team Providers Care Medical Stenographer Name Role Phone Unavailable Primary Care Provider Unavailabl e Social History Tobacco Use Types Packs/Day Years Used Date Smoking Tobacco: Never Assessed Comments Unknown Sex and Gender Information Value Date Recorded Sex Assigned at Not on file Legal Sex Female 10:56 AM EST Gender Identity Not on file Sexual Orientation Not on file Plan of Treatment Health Maintenance Due Date Last Done Comments Breast Cancer Screening 1970 DTaP,Tdap,and Td Vaccines (1 - Tdap) 1989 Hepatitis B Vaccines (1 of 3 - 19+ 3-dose series) 1989 Cervical Cancer Screening: P ap Smear 1991 Pneumococcal Vaccine: 50+ Ye ars (1 of 1 - PCV) 2020 Zoster Vaccines (1 of 2) 2020 COVID-19 Vaccine (1 - 2023-2 5 season) 2024 Influenza Vaccine (#1) 2024 HIB Vaccines Aged Out No longer eligi [...] on patient's age to complete this topic MMR Vaccines Aged Out No longer eligi ble based on patient's age to complete this topic Meningococcal ACWY Vaccine Aged Out N o longer eligible based on patient's age to complete this topic Meningococcal B Vacine Aged Out No lo nger eligible based on patient's age to complete this topic Pneumococcal Vaccine: Pediat rics (0 to 5 Years) and At-Risk Patients (6 to 64 Years) Aged Out No longer eligible b ased on patient's age to complete this topic RSV Immunization Patients Un karthikeyan 20 months Aged Out No longer eligible b ased on patient's age to complete this topic Varicella Vaccines Aged Out No longer eligible based on patient's age to complete this topic
--- OUTSIDE RECORDS SUMMARY | 2024-08-25 14:05 | XMS_ITS | Encounter Summary ---
Author Organization [employer] Address [address] [facility] [address] [address] Care Team Providers Care School Childcare Attendant Name Role Phone Priya Brewer MD Primary Care Provider +1- [phone] Cassie Yen Unavailable Reason for Visit * Reason Onset Date Comments chartprep 08/24/2024 Encounter Details Date Type Department Care Team (Late st Contact Info) Description 08/24/2024 Telephone [facility] MEDICINE [address] [place], [place] [phone] Priya Brewer MD [address] [place] [address] chartprep Social History Tobacco Use Types Packs/Day Years [...] encounter Miscellaneous Notes * Telephone Encounter - Altagracia Boucher MA - 08/24/2024 1:31 PM EDT ..Chart Prep Labs: not applicable Images: not applicable Vaccines due: Covid Due, PCV20 Due, Flu Due, and Shingles in pharmacy Due Referrals: Not Applicable Screenings: PAP Overdue care gaps: Sbirt, SDOH, PHQ-9, and Oral Health documented in this encounter Plan of Treatment Not on file documented as of this encounter Visit Diagnoses Not on filedocumented in this encounter Additional Health Concerns Assessment Noted Time PHQ-9 Depression Total Score: 0 07/02/19 24 3:35 PM EST documented as of this encounter Care Teams School Childcare Attendant Relationship Specialty Start Date End Date Priya Brewer MD [address] [place] [address] PCP - General Family Medicine 12/25/20 Cassie Yen [address] [place] [address] Drive [address] [place] [address] Gynecology 07/13/24 Dr. [facility]fall [facility]enter[facility] 07/13/24 documented as of this encounter
--- OUTSIDE RECORDS SUMMARY | 2024-08-25 14:05 | XMS_ITS | Encounter Summary ---
Author Organization [employer] Address [address] [facility] 7[address] [place] [address] Care Team Providers Care Radiology Interventional Physician Name Role Phone Priya Brewer MD Primary Care Provider +1- [phone] Cassie Yen Encounter Details Date Type Department Care Team (Late st Contact Info) Description 08/25/2024 Telephone [facility] MEDICINE [address] [place], [place] [phone] Priya Brewer MD [address] [place], [place] [phone] Social History Tobacco Use Types Packs/Day Years [...] encounter Miscellaneous Notes * Telephone Encounter - Priya Brewer MD - 08/25/2024 11:07 AM EDT Please call [facility] on [facility] to request elisha el pap and HPV and any biopsies andnotes. Thank you. documented in this encounter Plan of Treatment Not on file documented as of this encounter Visit Diagnoses Not on filedocumented in this encounter Additional Health Concerns Assessment Noted Time PHQ-9 Depression Total Score: 5 08/26/19 25 12:03 PM EDT documented as of this encounter Care Teams Radiology Interventional Physician Relationship Specialty Start Date End Date Priya Brewer MD [address] [place] [address] PCP - General Family Medicine 12/25/20 Cassie Yen [address] [place] [address] [address] [place] [address] Gynecology 07/13/24 Dr. Westfall [facility]enter[facility] 07/13/24 documented as of this encounter
--- OUTSIDE RECORDS SUMMARY | 2024-08-25 14:05 | XMS_ITS | Encounter Summary ---
Author Organization [employer] Address [address] [facility] 7t [place] [address] Care Team Providers Care Hvac Technician Residential Name Role Phone Priya Brewer MD Primary Care Provider +1- [phone] Cassie Yen Encounter Details Date Type Department Care Team (Late st Contact Info) Description 08/12/2023 Telephone [facility] [address] [place] [address] Nona Castellanos DMD Social History Tobacco Use Types Packs/Day Years [...] encounter Miscellaneous Notes * Telephone Encounter - Sade Bill - 08/12/2023 11:33 AM EST Patient called for her anxiety medicine for the apt she's having with DR nona Mauricio documented in this encounter Plan of Treatment Not on file documented as of this encounter Visit Diagnoses Not on filedocumented in this encounter Additional Health Concerns Assessment Noted Time PHQ-9 Depression Total Score: 0 07/02/19 24 3:35 PM EST documented as of this encounter Care Teams Hvac Technician Residential Relationship Specialty Start Date End Date Priya Brewer MD [address] [place] [address] PCP - General Family Medicine 12/25/20 Cassie Yen [address] [place] [address] [address] [place] [address] Gynecology 07/13/24 Dr. Westfall [facility]astroenter[facility] 07/13/24 documented as of this encounter
--- OUTSIDE RECORDS SUMMARY | 2024-08-25 14:05 | XMS_ITS | Encounter Summary ---
Author Organization [employer] Address [address] [facility] 7t [place] [address] Care Team Providers Care Paper Machine Backtender Name Role Phone Priya Brewer MD Primary Care Provider +1- [phone] MelindaCassie roche Unavailable Reason for Visit * Reason Comments Med Refill Encounter Details Date Type Department Care Team ([facility] st Contact Info) Description 08/19/2024 Refill [facility] MEDICINE [address] [place], [place] [phone] Priya Brewer MD [address] [place], [place] [phone] Recurrent moderate major depressive disorder with anxiety (CMS/HCC) Social History Tobacco Use Types Packs/Day Years [...] as of this encounter Visit Diagnoses Diagnosis Recurrent moderate major depressive disorder with anxiety (CMS/HCC) documented in this encounter Additional Health Concerns Assessment Noted Time PHQ-9 Depression Total Score: 0 07/02/19 24 3:35 PM EST documented as of this encounter Care Teams Paper Machine Backtender Relationship Specialty Start Date End Date Priya Brewer MD [address] [place] [address] PCP - General Family Medicine 12/25/20 Cassie Yen [address] [place] [address] [address] [place] [address] Gynecology 07/13/24 Dr. Westfall [facility]enter[facility] 07/13/24 documented as of this encounter
--- OUTSIDE RECORDS SUMMARY | 2024-08-25 14:05 | XMS_ITS | Encounter Summary ---
Author Organization [employer] [facility] Address [address] [facility] [address] [place] [address] Care Team Providers Care Director Marketing Communications Name Role Phone Priya Brewer MD Primary Care Provider +1- [phone] Melindahallejose manuel Cassie Unavailable Reason for Visit * Reason Comments Pre-visit Planning Pre-visit planning - LVM Encounter Details Date Type Department Care Team (Late st Contact Info) Description 08/13/2024 Patient Outreach [facility] MEDICINE [address] [place], [place] [phone] Priya Brewer MD [address] [place] [address] Pre-visit Planning (Pre-visit planning - LVM ) Social History Tobacco Use Types Packs/Day Years [...] AM EDT documented as of this encounter Progress Notes * Altagracia Ann - 08/13/2024 12:16 PM EST [facility] Snow placed outbound call to patient to complete pre-visit planning. No answer at this time. Patient name and were not confirmed. CC left voicemail requesting return call. Direct contact information provided. documented in this encounter Plan of Treatment Not on file documented as of this encounter Visit Diagnoses Not on filedocumented in this encounter Additional Health Concerns Assessment Noted Time PHQ-9 Depression Total Score: 0 07/02/19 24 3:35 PM EST documented as of this encounter Care Teams Director Marketing Communications Relationship Specialty Start Date End Date Priya Brewer MD [address] [place] [address] PCP - General Family Medicine 12/25/20 Cassie Yen [address] [place] [address] Drive [address] [place] [address] Gynecology 07/13/24 Dr. Westfall [facility]enter[facility] 07/13/24 documented as of this encounter
[2024-08-25 14:18] LABS: Alanine Aminotransferase 21 U/L (0-31); Albumin Level 4.5 g/dL (3.5-5.0); Alkaline Phosphatase 113 U/L (39-117); Aspartate Amino Transferase 26 U/L (5-31); Bilirubin Direct 0.2 mg/dL (0.0-0.5); Bilirubin Total 0.4 mg/dL (0.0-1.0); Cholesterol 182 mg/dL (<200); HDL Cholesterol 54 mg/dL (>40); LDL Cholesterol Calculated 106 mg/dL (<100); Total Protein 8.3 g/dL (6.5-8.0); Triglycerides 114 mg/dL (<150)
[2024-08-25 14:34] LABS: HIV AB/AG Nonreactive (Nonreactive); HIV Num 1 0.08 S/CO (0.00-0.99); Vitamin D 25-OH Total 22.7 ng/mL (>30); ~HepC Num1 0.28 S/CO (0.00-0.79); ~Hepatitis C Antibody Nonreactive (Nonreactive)
== END 2024-08-25 12:02 | disposition home or self-care (01) ==
LOC: HO.HHCL 12:01
PROVIDERS: Visit Provider Family Medicine
DX: Z11.4 Encounter for screening for human immunodeficiency virus [HIV] (principal); Z11.59 Encounter for screening for other viral diseases; E78.5 Hyperlipidemia, unspecified; E55.9 Vitamin D deficiency, unspecified
CPT/HCPCS: 36415; 80061; 80076; 82306; 86803; 87389